=== PATIENT | female | born 1955 | race Caucasian/White ===

== ENCOUNTER → 2017-10-13 12:06 | Outpatient (CLI) | payer OTHER, SELFPAY ==
--- NOTE | 2017-10-13 | DI.MG.S_ITS ---
BILATERAL DIGITAL SCREENING MAMMOGRAM 3D/2D WITH CAD: 10/13/2017 CLINICAL: Routine screening. Family history of breast cancer. Comparison is made to exams dated: 10/05/2016 mammogram - [facility], 03/18/2015 mammogram, and 03/05/2014 mammogram - [facility]. There are scattered fibroglandular elements in both breasts. Current study was also evaluated with a Computer Aided Detection (CAD) system. No significant masses, calcifications, or other findings are seen in either breast. There has been no significant interval change. IMPRESSION: NEGATIVE There is no mammographic evidence of malignancy. A 1 year screening mammogram is recommended. This exam was interpreted at Station ID: [id number]. NOTE: For mammograms, a report in lay terms will be sent to the patient. Approximately 15% of breast malignancies will not be visualized mammographically. In the management of a palpable breast mass, a negative mammogram must not discourage biopsy of a clinically suspicious lesion. Electronically Signed By: Filomena montgomery/vanesa:10/13/2017 14:48:00 letter sent: Normal Exam ACR BI-RADS Category 1: Negative 3341F
== END ==
PROVIDERS: PCP Nurse Practitioner; Visit Provider Family Medicine
DX: Z12.31 Encounter for screening mammogram for malignant neoplasm of breast (principal); Z80.3 Family history of malignant neoplasm of breast
CPT/HCPCS: 77063; 77067

== ENCOUNTER → 2018-11-01 10:10 | Outpatient (CLI) | payer MEDICARE, OTHER, SELFPAY ==
--- NOTE | 2018-11-01 | DI.MG.S_ITS ---
BILATERAL DIGITAL SCREENING MAMMOGRAM 3D/2D WITH CAD: 11/01/2018 CLINICAL: Routine screening. Family history of breast cancer. Comparison is made to exams dated: 10/13/2017 mammogram, 10/05/2016 mammogram - [facility], 03/18/2015 mammogram, 03/04/2013 mammogram, and 03/05/2014 mammogram - [facility]. There are scattered fibroglandular elements in both breasts. Current study was also evaluated with a Computer Aided Detection (CAD) system. There is a round high density asymmetry with a circumscribed margin in the right breast superior lateral quadrant anterior depth. There are bilateral vascular calcifications. No other significant masses, calcifications, or other findings are seen in either breast. IMPRESSION: INCOMPLETE: NEEDS ADDITIONAL IMAGING EVALUATION The round high density asymmetry in the right breast is indeterminate. Additional views with possible ultrasound are recommended. This exam was interpreted at Station ID: [id number]. NOTE: For mammograms, a report in lay terms will be sent to the patient. Approximately 15% of breast malignancies will not be visualized mammographically. In the management of a palpable breast mass, a negative mammogram must not discourage biopsy of a clinically suspicious lesion. Electronically Signed By: Dick Pacnhal M.D. ecl/:11/02/2018 17:33:35 letter sent: Additional Imaging Needed ACR BI-RADS Category 0: Incomplete 3340F
== END ==
PROVIDERS: PCP Family Medicine; Visit Provider Family Medicine
DX: Z12.31 Encounter for screening mammogram for malignant neoplasm of breast (principal); Z80.3 Family history of malignant neoplasm of breast
CPT/HCPCS: 77063; 77067

== ENCOUNTER → 2018-12-10 09:29 | Outpatient (CLI) | payer MEDICARE, OTHER, SELFPAY ==
--- NOTE | 2018-12-10 | DI.MG.S_ITS ---
UNILATERAL RIGHT DIGITAL DIAGNOSTIC MAMMOGRAM 3D/2D WITH ADDITIONAL VIEWS: 12/10/2018 CLINICAL: Additional evaluation requested from prior study. Comparison is made to exams dated: 10/13/2017 mammogram, 11/01/2018 mammogram, and 10/05/2016 mammogram - [facility]. There are scattered fibroglandular elements in right breast. There is a round equal density asymmetry with a circumscribed margin in the right breast superior lateral quadrant anterior depth. This is not significantly changed. No other significant masses or calcifications are seen in the breast. IMPRESSION: INCOMPLETE: NEEDS ADDITIONAL IMAGING EVALUATION The round equal density asymmetry in the right breast is indeterminate. Further evaluation by sonogram is recommended which is scheduled to immediately follow this examination. This exam was interpreted at Station ID: [id number]. NOTE: For mammograms, a report in lay terms will be sent to the patient. Approximately 15% of breast malignancies will not be visualized mammographically. In the management of a palpable breast mass, a negative mammogram must not discourage biopsy of a clinically suspicious lesion. Electronically Signed By: Alejo Russell M.D. aty/:12/10/2018 10:13:26 ACR BI-RADS Category 0: Incomplete 3340F
--- NOTE | 2018-12-10 | DI.US.S_ITS ---
ULTRASOUND OF RIGHT BREAST: 12/10/2018 CLINICAL: Patient returns today to evaluate a focal asymmetry in the right breast. Comparison is made to exams dated: 12/10/2018 mammogram, 11/01/2018 mammogram, 10/13/2017 mammogram, and 10/05/2016 mammogram - [facility]. Color flow and real-time ultrasound of the right breast were performed. Pascual scale images of the real-time examination were reviewed. There is a 0.3 cm x 0.4 cm x 0.3 cm oval cyst with a septated internal wall in the right breast at 10 o'clock anterior depth 6 cm from the nipple. This oval cyst is hypoechoic with posterior acoustic enhancement. Color flow imaging demonstrates that there is no vascularity present. IMPRESSION: PROBABLY BENIGN The 0.3 cm x 0.4 cm x 0.3 cm oval cyst in the right breast most likely is a complicated cyst and is probably benign. A follow-up right mammogram and an ultrasound in 6 months is recommended to demonstrate stability. This exam was interpreted at Station ID: [id number]. Electronically Signed By: Alejo wilson/:12/10/2018 10:40:14 letter sent: Followup Recommended Ultrasound BI-RADS: 3 Probably benign
== END ==
PROVIDERS: PCP Family Medicine; Visit Provider Family Medicine
DX: R92.8 Other abnormal and inconclusive findings on diagnostic imaging of breast (principal); N60.01 Solitary cyst of right breast
CPT/HCPCS: 76642; 77065; G0279

== ENCOUNTER → 2019-08-06 12:43 | Outpatient (CLI) | payer MEDICARE, OTHER, SELFPAY ==
--- NOTE | 2019-08-06 | DI.MG.S_ITS ---
UNILATERAL RIGHT DIGITAL DIAGNOSTIC MAMMOGRAM 3D/2D SHORT-TERM FOLLOW-UP: 08/06/2019 CLINICAL: Patient returns for a 6 month follow up of the right breast. Comparison is made to exams dated: 12/10/2018 mammogram, 11/01/2018 mammogram, and 10/13/2017 mammogram - [facility]. There are scattered fibroglandular elements in right breast. There is a stable round 3mm asymmetry with a circumscribed margin in the right breast superior lateral quadrant anterior depth which is now low density. No other significant masses or calcifications are seen in the breast. IMPRESSION: INCOMPLETE: NEEDS ADDITIONAL IMAGING EVALUATION The 3 mm round asymmetry in the right breast is stable. An ultrasound is recommended for confirmation. This was performed immediately following this exam. This exam was interpreted at Station ID: [id number]. NOTE: For mammograms, a report in lay terms will be sent to the patient. Approximately 15% of breast malignancies will not be visualized mammographically. In the management of a palpable breast mass, a negative mammogram must not discourage biopsy of a clinically suspicious lesion. Electronically Signed By: Agnes dueñas/:08/06/2019 16:04:29 ACR BI-RADS Category 0: Incomplete 3340F
--- NOTE | 2019-08-06 | DI.US.S_ITS ---
LIMITED ULTRASOUND OF RIGHT BREAST: 08/06/2019 CLINICAL: 6 month follow-up of cysts. Comparison is made to exams dated: 08/06/2019 mammogram, 12/10/2018 ultrasound, 12/10/2018 mammogram, 11/01/2018 mammogram, 10/13/2017 mammogram, and 10/05/2016 mammogram - [facility]. Color flow and real-time ultrasound of the right breast 10 o'clock region were performed. Pascual scale images of the real-time examination were reviewed. There is a stable 0.3 cm x 0.4 cm x 0.3 cm oval cyst in the right breast at 10 o'clock anterior depth 6 cm from the nipple. This oval cyst is anechoic with posterior acoustic enhancement. Previous septation is not well seen. Color flow imaging demonstrates that there is no vascularity present. This correlates with mammography findings. IMPRESSION: BENIGN There is no sonographic evidence of malignancy. The stable 0.3 cm x 0.4 cm x 0.3 cm oval cyst in the right breast appears benign. Return to annual mammogram screening schedule is recommended. Findings and recommendations were conveyed to the patient at time of exam. This exam was interpreted at Station ID: [id number]. Electronically Signed By: Agnes dueñas/:08/06/2019 16:07:28 letter sent: Normal Exam Ultrasound BI-RADS: 2 Benign
== END ==
PROVIDERS: PCP Family Medicine; Referring Provider Family Medicine; Visit Provider Family Medicine
DX: R92.8 Other abnormal and inconclusive findings on diagnostic imaging of breast (principal); N64.89 Other specified disorders of breast
CPT/HCPCS: 76642; 77065; G0279

== ENCOUNTER → 2019-11-26 09:00 | Outpatient (CLI) | payer MEDICARE, OTHER, SELFPAY ==
--- NOTE | 2019-11-26 | DI.MG.S_ITS ---
BILATERAL DIGITAL SCREENING MAMMOGRAM 3D/2D WITH CAD: 11/26/2019 CLINICAL: Routine screening. Family history of breast cancer. Comparison is made to exams dated: 11/01/2018 mammogram, 10/13/2017 mammogram, and 10/05/2016 mammogram - [facility]. There are scattered fibroglandular elements in both breasts. Current study was also evaluated with a Computer Aided Detection (CAD) system. No significant masses, calcifications, or other findings are seen in either breast. There has been no significant interval change. IMPRESSION: NEGATIVE There is no mammographic evidence of malignancy. A 1 year screening mammogram is recommended. This exam was interpreted at Station ID: [id number]. NOTE: For mammograms, a report in lay terms will be sent to the patient. Approximately 15% of breast malignancies will not be visualized mammographically. In the management of a palpable breast mass, a negative mammogram must not discourage biopsy of a clinically suspicious lesion. Electronically Signed By: Brett Og M.D., jr/vanesa:11/26/2019 10:51:54 letter sent: Normal Exam ACR BI-RADS Category 1: Negative 3341F
== END ==
PROVIDERS: PCP Family Medicine; Referring Provider Family Medicine; Visit Provider Family Medicine
DX: Z12.31 Encounter for screening mammogram for malignant neoplasm of breast (principal); Z80.3 Family history of malignant neoplasm of breast
CPT/HCPCS: 77063; 77067

== ENCOUNTER → 2020-12-07 17:52 | Outpatient (CLI) | payer MEDICARE, OTHER, SELFPAY ==
--- NOTE | 2020-12-07 | DI.MG.S_ITS ---
BILATERAL DIGITAL SCREENING MAMMOGRAM 3D/2D WITH CAD: 12/07/2020 CLINICAL: Routine screening. Family history of breast cancer. Comparison is made to exams dated: 11/26/2019 mammogram, 08/06/2019 ultrasound, 08/06/2019 mammogram, and 11/01/2018 mammogram - [facility]. There are scattered fibroglandular elements in both breasts. Current study was also evaluated with a Computer Aided Detection (CAD) system. There is a 0.8 cm oval equal density focal asymmetry in the left breast at 10 o'clock anterior depth. This is more prominent and increased in size. No other significant masses, calcifications, or other findings are seen in either breast. IMPRESSION: INCOMPLETE: NEEDS ADDITIONAL IMAGING EVALUATION The 0.8 cm oval equal density focal asymmetry in the left breast resembles a cyst and is indeterminate. Additional views with possible ultrasound are recommended. This exam was interpreted at Station ID: [id number]. NOTE: For mammograms, a report in lay terms will be sent to the patient. Approximately 15% of breast malignancies will not be visualized mammographically. In the management of a palpable breast mass, a negative mammogram must not discourage biopsy of a clinically suspicious lesion. Electronically Signed By: Alejo maldonado/vanesa:12/08/2020 09:06:17 letter sent: Additional Imaging Needed ACR BI-RADS Category 0: Incomplete 3340F
== END ==
PROVIDERS: PCP Family Medicine; Referring Provider Family Medicine; Visit Provider Family Medicine
DX: Z12.31 Encounter for screening mammogram for malignant neoplasm of breast (principal); Z80.3 Family history of malignant neoplasm of breast
CPT/HCPCS: 77063; 77067

== ENCOUNTER → 2022-07-29 08:32 | Outpatient (CLI) | payer MEDICARE, OTHER, SELFPAY ==
--- NOTE | 2022-07-29 | DI.MG.S_ITS ---
BILATERAL DIGITAL SCREENING MAMMOGRAM 3D/2D WITH CAD: 07/29/2022 CLINICAL: Routine screening. Family history of breast cancer. Comparison is made to exams dated: 12/07/2020 mammogram, 11/26/2019 mammogram, and 11/01/2018 mammogram - [facility]. There are scattered areas of fibroglandular density in both breasts (category b / 25%-50% glandular tissue). Current study was also evaluated with a Computer Aided Detection (CAD) system. No significant masses, calcifications, or other findings are seen in either breast. There has been no significant interval change. IMPRESSION: NEGATIVE There is no mammographic evidence of malignancy. A 1 year screening mammogram is recommended. Based on the Tyrer Cuzick model (a risk assessment model) the patient's lifetime risk is 7.6% and her 10 year risk is 4.5%. According to the ACR, ACS, and NCCN guidelines, an annual breast MRI exam along with mammogram is recommended if the patient's lifetime risk is 20% or greater. This exam was interpreted at Station ID: [id number]. NOTE: For mammograms, a report in lay terms will be sent to the patient. Approximately 15% of breast malignancies will not be visualized mammographically. In the management of a palpable breast mass, a negative mammogram must not discourage biopsy of a clinically suspicious lesion. Electronically Signed By: Alejo maldonado/vanesa:07/29/2022 12:49:57 letter sent: Normal Exam ACR BI-RADS Category 1: Negative 3341F
== END ==
PROVIDERS: PCP Family Medicine; Referring Provider Nurse Practitioner Family; Visit Provider Nurse Practitioner Family
DX: Z12.31 Encounter for screening mammogram for malignant neoplasm of breast (principal)
CPT/HCPCS: 77063; 77067